=== PATIENT | male | born 1930 | race Caucasian/White ===

== ENCOUNTER 2019-01-22 15:38 | Emergency (ER) | payer MEDICARE, OTHER ==
[~2019-01-22] VITALS: Ht 175.3 cm; Wt 68.0 kg
[2019-01-22 15:45] VITALS: Ht 175.3 cm; Wt 68.0 kg
[2019-01-22] MEDS ORDERED: SOD CHLORIDE 0.9% 500 ML IV STA (15:53)
--- NOTE | 2019-01-22 15:56 | ERD ---
ER Documentation Chief Complaint Chief Complaint HPI Patient is at a SNF for receiving IV antibiotics for a UTI. This morning patien t woke up and had some epigastric pain letter vomiting several times. He felt weak and never passed out. Was transferred by EMS to ER for evaluation. Patient endorses continued epigastric discomfort. States he is having abdominal surgery a couple weeks but does not know why. Denies any diarrhea, constipation, bloody emesis. Denies any shortness of breath or chest pain. Patient still has a Reyes ROS All systems reviewed and are negative except as per history of present illness. Medications Home Meds Unable to Obtain Active Prescriptions or Reported Meds Physical Exam Vitals Vital Signs Date Temp Pulse Resp B/P (MAP) Pulse Ox O2 O2 Flow FiO2 Time Delivery Rate 01/22/19 97.0 100 18 94/62 (73) 97 Room Air 21:09 01/22/19 97.6 98 18 105/73 98 Room Air 19:46 (84) 01/22/19 97.2 94 12 83/68 (73) 98 Room Air 17:40 01/22/19 97.2 108 10 106/77 96 15:45 (87) 01/22/19 97.2 103 16 106/77 99 Room Air 15:40 (87) Physical Exam Const: No acute distress Head: Atraumatic Eyes: Normal Conjunctiva ENT: Normal External Ears, Nose and Mouth. Neck: Full range of motion. No meningismus. Resp: Clear to auscultation bilaterally Cardio: Regular rate and rhythm, no murmurs Abd: Soft, mild epigastric tender, non distended. Normal bowel sounds Skin: No petechiae or rashes Back: No midline or flank tenderness Ext: No cyanosis, or edema Neur: Awake and alert Psych: Normal Mood and Affect Result Diagram: 01/22/19 1605 01/22/19 1605 Results 24 hrs Laboratory Tests Test 01/22/19 16:05 White Blood Count 14.8 10^3/ul Red Blood Count 3.60 10^6/ul Hemoglobin 11.3 g/dl Hematocrit 35.5 % Mean Corpuscular Volume 98.6 fl Mean Corpuscular Hemoglobin 31.4 pg Mean Corpuscular Hemoglobin Concent 31.8 g/dl Red Cell Distribution Width 13.1 % Platelet Count 208 10^3/UL Mean Platelet Volume 11.6 fl Immature Granulocytes % 1.000 % Neutrophils % 66.7 % Lymphocytes % 24.7 % Monocytes % 3.4 % Eosinophils % 3.7 % Basophils % 0.5 % Nucleated Red Blood Cells % 0.0 /100WBC Immature Granulocytes # 0.150 10^3/ul Neutrophils # 9.9 10^3/ul Lymphocytes # 3.7 10^3/ul Monocytes # 0.5 10^3/ul Eosinophils # 0.5 10^3/ul Basophils # 0.1 10^3/ul Nucleated Red Blood Cells # 0.0 10^3/ul Urine Color MIKAELA Urine Clarity CLOUDY Urine pH 6.0 Urine Specific [place] 1.018 Urine Ketones 1+ mg/dL Urine Nitrite NEGATIVE mg/dL Urine Bilirubin NEGATIVE mg/dL Urine Urobilinogen NEGATIVE mg/dL Urine Leukocyte Esterase 3+ Radha/ul Urine Microscopic RBC 92 /HPF Urine Microscopic WBC 125 /HPF Urine Bacteria FEW /HPF Urine Mucus MANY /HPF Urine Hemoglobin 2+ mg/dL Urine Glucose NEGATIVE mg/dL Urine Total Protein 2+ mg/dl Sodium Level 137 mmol/L Potassium Level 5.4 mmol/L Chloride Level 98 mmol/L Carbon Dioxide Level 26 mmol/L Anion Gap 13 Blood Urea Nitrogen 16 mg/dl Creatinine 0.82 mg/dl Est Glomerular Filtrat Rate mL/min mL/min Glucose Level 188 mg/dl Calcium Level 9.3 mg/dl Total Bilirubin 0.3 mg/dl Direct Bilirubin 0.00 mg/dl Indirect Bilirubin 0.3 mg/dl Aspartate Amino Transf (AST/SGOT) 43 IU/L Alanine Aminotransferase (ALT/SGPT) 24 IU/L Alkaline Phosphatase 105 IU/L Troponin I < 0.012 ng/ml Total Protein 7.2 g/dl Albumin 3.9 g/dl Globulin 3.30 g/dl Albumin/Globulin Ratio 1.18 Lipase 90 U/L Current Medications Medications Dose Sig/Sin Start Time Status Last (Trade) Ordered Route PRN Stop Time Admin Dose Reason Admin Sodium 500 ml @ Q1H STAT 01/22/19 DC 01/22/19 Chloride 500 mls/hr IV 15:53 16:12 01/22/19 16:52 IV Flush 10 ml STK-MED 01/22/19 DC (NS 10 ml) ONCE .ROUTE 16:48 01/22/19 16:49 Sodium 100 ml @ ud STK-MED 7/27/19 DC Chloride ONCE .ROUTE 16:48 01/22/19 16:49 Iohexol 150 ml STK-MED 01/22/19 DC (Omnipaque ONCE .ROUTE 16:48 300mg/ ml) 01/22/19 16:49 Morphine 4 mg ONCE STAT 01/22/19 DC 01/22/19 Sulfate IV 17:09 17:27 (morphine) 01/22/19 17:10 Ondansetron 4 mg ONCE STAT 01/22/19 DC 01/22/19 HCl (Zofran IV 17:21 17:27 Inj) 01/22/19 17:22 Sodium 1,000 ml @ Q1H ONCE 01/22/19 DC 01/22/19 Chloride 1,000 mls/hr IV 18:00 17:53 01/22/19 18:59 Procedures/MDM ECG Time: 1606 Ventricular Rate: 107 Rhythm: Sinus tachycardia. Right bundle branch block. Patient presents with abdominal pain, no nausea and vomiting, has flatus , BM afebrile Patient is well appearing. Non acute abdominal exam. Low suspicion for AAA given no palpable mass . Low suspicion for mesenteric ischemia given pain not out of proportion to exam, and no major risk factors Patient remains PO tolerant. Serial abdominal exam without increase in abdominal pain. Given exam and history, low suspicion for acute abdominal process, such as acute cholecystitis, pancreatitis, perforated viscus, atypical appendicitis or torsion. Extensive conversation about return precautions and need for follow-up. CT abdomen pelvis negative per Dr. Villafuerte read. Labs unremarkable. Patient was mildly hypotensive but improved with fluids patient is asymptomatic at this time and receiving antibiotics at the nursing facility will discharge. Departure Diagnosis: Primary Impression: Acute weakness Additional Impression: Abdominal pain Abdominal location: generalized Qualified Codes: R10.84 - Generalized abdominal pain Condition: Stable DANNY REED MD Jan 22, 2019 15:56
[2019-01-22] MEDS ORDERED: IOHEXOL 300MG/ML 150 ML BTL ONE (16:48)
[2019-01-22] MEDS ORDERED: SOD CHLORIDE 0.9% 100 ML ONE (16:48)
[2019-01-22] MEDS ORDERED: morphine 4 MG/ML VIAL IV STA (17:09)
[2019-01-22] MEDS ORDERED: ONDANSETRON 4 MG INJ IV STA (17:21)
[2019-01-22] MEDS ORDERED: SOD CHLORIDE 0.9% 1,000 ML IV ONE (18:00)
[2019-01-23 00:30] VITALS: BP 104/69; PULSE 108; RESP 17
== END 2019-01-23 00:36 | disposition home or self-care (01) ==
LOC: EDBD 15:38 → E/R 15:38
DX: R53.1 Weakness (principal); R10.84 Generalized abdominal pain; R11.10 Vomiting, unspecified
CPT/HCPCS: 36415; 71045; 74177; 80053; 81001; 83690; 84484; 85025; 93005; 96361; 96374; 96375; 99285; J2270; J2405; J7030; J7040; Q9967